=== PATIENT | male | born 1960 | race African-American/Black ===

== ENCOUNTER → 2019-03-14 | Outpatient (CLI) | payer OTHER ==
--- NOTE | 2019-03-14 17:37 | RAD ---
LUMBAR SPINE 2-3V DATE: 03/14/2019 12:00 AM INDICATION: Low back pain COMPARISON: None. FINDINGS: Five non-rib bearing lumbar-type vertebral bodies are present. Bones/Alignment: No evidence of acute compression fracture. There is no listhesis. Joints: Mild multilevel degenerate disc space height loss. Miscellaneous: Aortoiliac atherosclerotic calcification IMPRESSION: Mild lumbar spondylosis Electronically signed by: Patrick Guerra MD (03/14/2019 5:34 PM) [id number]
== END | disposition home or self-care (01) ==
LOC: RAD 09:49 → EDBD 09:49
PROVIDERS: ATTEND Surgery
DX: M47.816 Spondylosis without myelopathy or radiculopathy, lumbar region (principal); I70.0 Atherosclerosis of aorta
CPT/HCPCS: 72100